=== PATIENT | male | born 1965 | race Caucasian/White ===

== ENCOUNTER 2018-05-11 12:15 | Emergency (ER) | payer OTHER ==
--- NOTE | 2018-05-11 12:51 | EDPHY ---
H & P Stated Complaint: irregular hr/palpitations Time Seen by Provider: 05/11/18 12:51 HPI/ROS: CHIEF COMPLAINT: Palpitations HISTORY OF PRESENT ILLNESS: The patient presents to the ED after an episode of palpitations that occurred earlier today and resolved. The patient denies any chest pain or shortness of breath. He does feel quite anxious when he gets the symptoms. The patient had a similar episode last week and was seen in the emergency department in [place]. At that point time no obvious arrhythmia was diagnosed. The patient had a normal metabolic panel, troponin but did have an elevated D-dimer which led to a CT angiogram of the chest which was negative. The patient's symptoms seemed to resolve spontaneously in return for brief period of time today. The patient denies any asymmetric calf pain or swelling. 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 He takes hydrochlorothiazide, lisinopril and atenolol for hypertension and palpitations. The patient has no history of coronary artery disease. He denies any syncope. He denies additional acute complaints. He currently is asymptomatic. REVIEW OF SYSTEMS: A comprehensive 10 point review of systems is otherwise negative aside from elements mentioned in the history of present illness. Source: Patient - Personal History Current Tetanus Diphtheria and Acellular Pertussis (TDAP): No - Medical/Surgical History Hx Asthma: No Hx Chronic Respiratory Disease: No Hx Diabetes: No Hx Cardiac Disease: Yes Hx Renal Disease: No Hx Cirrhosis: No Hx Alcoholism: No Hx HIV/AIDS: No Hx Splenectomy or Spleen Trauma: No Other PMH: pvc's - Social History Smoking Status: Never smoked - Physical Exam Exam: General Appearance: Alert, slightly anxious Eyes: Pupils equal and round no pallor or injection ENT, Mouth: Mucous membranes moist Respiratory: There are no retractions, lungs are clear to auscultation Cardiovascular: Regular rate and rhythm Gastrointestinal: Abdomen is soft and nontender, no masses, bowel sounds normal Neurological: 5/5 strength noted all 4 extremities Skin: Warm and dry, no rashes Musculoskeletal: Neck is supple nontender Extremities: symmetrical, full range of motion Constitutional: Initial Vital Signs Temperature (C) 36.8 C 05/11/18 12:20 Heart Rate 72 05/11/18 12:20 Respiratory Rate 17 05/11/18 12:20 Blood Pressure 128/105 H 05/11/18 12:20 O2 Sat (%) 98 05/11/18 12:20 O2 Delivery Mode Room Air Allergies/Adverse Reactions: No Known Allergies Allergy (Verified 05/11/18 12:19) Home Medications: Medication Instructions Recorded Hydrochlorothiazide [HCTZ (*)] 12.5 mg PO DAILY #30 cap 07/09/15 Atenolol 05/11/18 Lisinopril 05/11/18 Medical Decision Making - Diagnostics EKG Interpretation: EKG: Complete interpretation has been separately recorded in the [facility] archive. Summary impression: Atrial tachycardia with a rate of 170 EKG #2: EKG: Complete interpretation has been separately recorded in the [facility] archive. Summary impression: Sinus rhythm, rate 91 ED Course/Re-evaluation: Patient presents to the ED with atrial fibrillation which has resolved spontaneously in the emergency department. I consulted with Dr. Lopez Lee from Cardiology who reviewed the patient's EKGs with the camera maker. They are recommending the patient increase his beta-jerald. They will schedule a follow-up appointment with him in clinic next week. The patient has been advised to return to the ED for acute tachycardia, chest pain or difficulty breathing. Patient has no ischemic changes noted on his EKG and his troponin is normal. Cardiology does not recommend beginning anticoagulation at this point time. Differential Diagnosis: Differential diagnosis considered includes atrial fibrillation, atrial flutter, dehydration, metabolic abnormality, acute coronary syndrome - Data Points Laboratory Results: Laboratory Results 05/11/18 12:40 05/11/18 05/11/18 12:48 12:40 Sodium 136 mEq/L mEq/L (135-145) Potassium 3.9 mEq/L mEq/L (3.5-5.2) Chloride 100 mEq/L mEq/L (97-110) Carbon Dioxide 24 mEq/l mEq/l (22-31) Anion Gap 12 mEq/L mEq/L (6-14) BUN 16 mg/dL mg/dL (7-23) Creatinine 0.8 mg/dL mg/dL (0.7-1.3) Estimated GFR > 60 Glucose 107 mg/dL H mg/dL (70-100) Calcium 10.1 mg/dL mg/dL (8.5-10.4) POC Troponin I 0.00 ng/mL ng/mL (0.00-0.08) TSH 1.020 uIU/mL uIU/mL (0.465-4.680) Point of Care Test Results: Chemistry 05/11/18 12:48 POC Troponin I 0.00 ng/mL ng/mL (0.00-0.08) Departure - Departure Disposition: Home, Routine, Self-Care Clinical Impression: Atrial tachycardia Condition: Good Instructions: Atrial Tachycardia (ED) Additional Instructions: 1. Cardiology will contact you to schedule a follow-up appointment with the camera maker. 2. They do recommend increasing your beta-jerald. You can take 50 mg a day of your atenolol. 3. Return to the ED for any recurrent tachycardia, chest pain or difficulty breathing. Referrals: Andrew Granado MD [Medical Doctor] - As per Instructions
--- NOTE | 2018-05-11 15:06 | CPEKG ---
Test Reason : OPEN Blood Pressure : / mmHG Vent. Rate : 070 BPM Atrial Rate : 069 BPM P-R Int : 209 ms QRS Dur : 169 ms QT Int : 439 ms P-R-T Axes : 051 -64 100 degrees QTc Int : 474 ms Sinus rhythm Borderline prolonged IL interval Left bundle branch block Confirmed by Trinidad Mcconnell ([id number]) on 05/11/2018 3:06:07 PM Referred By: PHYSICIAN ED Confirmed By:Trinidad Mcconnell
[2018-05-11 15:09] VITALS: BP 158/93
== END 2018-05-11 15:07 | disposition home or self-care (01) ==
DX: I47.1 Supraventricular tachycardia (principal); I10 Essential (primary) hypertension; Z79.899 Other long term (current) drug therapy
CPT/HCPCS: 84484-ER